=== PATIENT | male | born 1975 | race Caucasian/White ===

== ENCOUNTER 2020-06-01 00:20 | Emergency (ER) | payer OTHER ==
[~2020-06-01] VITALS: Ht 198.1 cm; Wt 117.9 kg
--- NOTE | 2020-06-01 00:51 | Emergency Department Note ---
History of Present Illnes History of Present Illness Chief Complaint: Chest Pain History of Present Illness This is a 45 year old male with intermittant chest palpitations since 0. Denies SOB, reports that episodes are self-limited . Onset (how long ago): day(s) (5) Location: substernal Quality: throbbing Radiation: Reports non-radiation Severity: mild Onset quality: sudden Timing of current episode: constant Progression: resolved Context: Denies recent illness, Denies recent surgery, Denies recent immobilization, Denies recent travel, Denies trauma/injury, Denies new medications, Denies hx of DVT/PE, Denies non-compliance w/ medications, Denies other Relieving factors: none Exacerbating factors: none Associated symptoms: Reports denies other symptoms Treatments prior to arrival: none Past Medical/Family History Physician Review I have reviewed the patient's past medical and family history. Any updates have been documented here. Past Medical History Recent Fever: No Clinical Suspicion of Infectio: No New/Unexplained Change in Ment: No Past Medical History: Hypertension Social History Smoking Cessation: Never Smoker Alcohol Use: Occasional Any Illegal Drug Use: No Review of Systems Review of Systems Constitutional: Reports no symptoms EENTM: Reports no symptoms Cardiovascular: Reports palpitations Respiratory: Reports no symptoms Gastrointestinal: Reports no symptoms Genitourinary: Reports no symptoms Musculoskeletal: Reports no symptoms Integumentary: Reports no symptoms Neurological: Reports no symptoms Psychological: Reports no symptoms Endocrine: Reports no symptoms Hematological/Lymphatic: Reports no symptoms Physical Exam Related Data Allergies: Coded Allergies: Penicillins (Verified Allergy, Intermediate, 06/01/20) chocolate flavor (Verified Allergy, Intermediate, 06/01/20) Vital signs reviewed: Yes Physical Exam CONSTITUTIONAL Constitutional: Present well-developed, Present well-nourished HENT HENT: Present normocephalic, Present atraumatic, Present oropharynx clear/moist, Present nose normal HENT L/R: Present left ext ear normal, Present right ext ear normal EYES Eyes: Reports PERRL, Reports conjunctivae normal NECK Neck: Present ROM normal PULMONARY Pulmonary: Present effort normal, Present breath sounds normal CARDIOVASCULAR Cardiovascular: Present regular rhythm, Present heart sounds normal, Present capillary refill normal, Present normal rate GASTROINTESTINAL Abdominal: Present soft, Present nontender, Present bowel sounds normal GENITOURINARY Genitourinary: Present exam deferred SKIN Skin: Present warm, Present dry MUSCULOSKELETAL Musculoskeletal: Present ROM normal NEUROLOGICAL Neurological: Present alert, Present oriented x 3, Present no gross motor or sensory deficits PSYCHOLOGICAL Psychological: Present mood/affect normal, Present judgement normal Results Laboratory Lab results reviewed: Yes Laboratory comments Laboratory Tests Test 06/01/20 00:46 White Blood Count 9.53 x10e3/uL (4.8-10.8) Red Blood Count 4.84 x10e6/uL (4.3-5.7) Hemoglobin 14.5 g/dL (14.0-18.0) Hematocrit 42.7 % (38.2-49.6) Mean Corpuscular Volume 88.2 fL (81-99) Mean Corpuscular Hemoglobin 30.0 pg (28-32) Mean Corpuscular Hemoglobin Concent 34.0 g/dL (31-35) Red Cell Distribution Width 13.0 % (11.7-14.4) Platelet Count 266 x10e3/uL (140-360) Neutrophils (%) (Auto) 53.7 % (38.7-80.0) Lymphocytes (%) (Auto) 37.9 % (18.0-39.1) Monocytes (%) (Auto) 5.9 % (4.4-11.3) Eosinophils (%) (Auto) 1.7 % (0.0-6.0) Basophils (%) (Auto) 0.6 % (0.0-1.0) Neutrophils # (Auto) 5.1 (2.1-6.9) Lymphocytes # (Auto) 3.6 (1.0-3.2) Monocytes # (Auto) 0.6 (0.2-0.8) Eosinophils # (Auto) 0.2 (0.0-0.4) Basophils # (Auto) 0.1 (0.0-0.1) Absolute Immature Granulocyte (auto 0.02 x10e3/uL (0-0.1) D-Dimer Quantitative (PE/DVT) 0.27 ug/mLFEU (0.00-0.45) Sodium Level 146 mmol/L (136-145) Potassium Level 3.0 mmol/L (3.5-5.1) Chloride Level 108 mmol/L (98-107) Carbon Dioxide Level 27 mmol/L (22-29) Anion Gap 14.0 mmol/L (8-16) Blood Urea Nitrogen 13 mg/dL (7-26) Creatinine 0.99 mg/dL (0.72-1.25) Estimat Glomerular Filtration Rate > 60 ML/MIN (60-) BUN/Creatinine Ratio 13 (6-25) Glucose Level 98 mg/dL (74-118) Calcium Level 9.5 mg/dL (8.4-10.2) Total Bilirubin 0.5 mg/dL (0.2-1.2) Aspartate Amino Transf (AST/SGOT) 21 IU/L (5-34) Alanine Aminotransferase (ALT/SGPT) 42 IU/L (0-55) Alkaline Phosphatase 66 IU/L (40-150) Creatine Kinase 156 IU/L (30-200) Creatine Kinase MB 1.00 ng/mL (0-5.0) Troponin I < 0.001 ng/mL (0-0.300) B-Type Natriuretic Peptide < 10.0 pg/mL (0-100) Total Protein 7.2 g/dL (6.5-8.1) Albumin 4.0 g/dL (3.5-5.0) Globulin 3.2 g/dL (2.3-3.5) Albumin/Globulin Ratio 1.3 (0.8-2.0) Imaging Imaging results reviewed: Yes Impressions [place] [id number] Patient Name: RUFINO BULLOCK MR #: [id number] : 1975 Age/Sex: 45/M Req #: [id number] Adm Physician: Ordered by: ATUL VANN DO Report #: [id number] Location: ER Room/Bed: Procedure: [id number] DX/CHEST 2 VIEWS Exam Date: Exam Time: REPORT STATUS: Signed EXAMINATION: CHEST 2 VIEWS INDICATION: Heart palpitations. ^ORDER PLACED BY MD ^Y COMPARISON: None FINDINGS: TUBES and LINES: None. LUNGS: Normal lung volumes. Lungs are clear. No consolidations. PLEURA: No pleural effusion or pneumothorax. HEART AND MEDIASTINUM: The cardiomediastinal silhouette is unremarkable. BONES AND SOFT TISSUES: No acute osseous lesion. Soft tissues are unremarkable. UPPER ABDOMEN: No free air under the diaphragm. IMPRESSION: No acute thoracic radiographic abnormality. Signed by: Swomya Fishman MD on 06/01/2020 2:40 AM Dictated By: SOWMYA FISHMAN MD 9 Transcribed By: KIM on 06/01/20239 COPY TO: ATUL VANN DO~ Procedures 12 Lead ECG Interpretation ECG Interpretation : ECG: ECG 1 Digital Service Engineer: Interpreted by ED physician Date: Jun 01, 2020 Time: 00:51 Prior ECG tracings: reviewed Rhythm: sinus rhythm Rate: normal BPM: 70 QRS axis: normal ST segments normal: Yes T waves normal: Yes Clinical Impression: normal ECG Assessment & Plan Medical Decision Making MDM 45 yom presents with chest palpitations. CMP, CBC, EKG, and cardiac enzymes ordered for consideration of ACS, PE, costocondritis, Chest wall pain, and pneumothorax considered. labs, imaging and EKG reviewed . Assessment & Plan Final Impression: (1) Palpitations (2) Hypokalemia Depart Disposition: HOME, SELF-CARE ATUL VANN DO Jun 01, 2020 00:51
[2020-06-01] MEDS ORDERED: ASPIRIN 81 MG CHEW TAB PO ONE (01:00)
[2020-06-01 01:08] LABS: BASOPHILS # (AUTO) 0.1 (0.0-0.1); BASOPHILS % 0.6 % (0.0-1.0); EOSINOPHILS # (AUTO) 0.2 (0.0-0.4); EOSINOPHILS % 1.7 % (0.0-6.0); HEMATOCRIT 42.7 % (38.2-49.6); HEMOGLOBIN 14.5 g/dL (14.0-18.0); LYMPHOCYTES # (AUTO) 3.6 (1.0-3.2); LYMPHOCYTES % 37.9 % (18.0-39.1); MEAN CORPUSCULAR VOLUME 88.2 fL (81-99); MONOCYTES # (AUTO) 0.6 (0.2-0.8); MONOCYTES % 5.9 % (4.4-11.3); NEUTROPHILS # (AUTO) 5.1 (2.1-6.9); NEUTROPHILS % 53.7 % (38.7-80.0); PLATELET COUNT 266 x10e3/uL (140-360); RED BLOOD COUNT 4.84 x10e6/uL (4.3-5.7)
[2020-06-01 01:29] LABS: ALANINE AMINOTRANSFERASE 42 IU/L (0-55); ALBUMIN/GLOBULIN RATIO 1.3 (0.8-2.0); ALKALINE PHOSPHATASE 66 IU/L (40-150); BLOOD UREA NITROGEN 13 mg/dL (7-26); BUN/CREATININE RATIO 13 (6-25); CALCIUM 9.5 mg/dL (8.4-10.2); CARBON DIOXIDE 27 mmol/L (22-29); CHLORIDE 108 mmol/L (98-107); CREATINE KINASE 156 IU/L (30-200); CREATININE, SERUM 0.99 mg/dL (0.72-1.25); EST GLOMERULAR FILTRATION RATE > 60 ML/MIN (60-); GLUCOSE 98 mg/dL (74-118); SODIUM 146 mmol/L (136-145)
--- OUTSIDE RECORDS SUMMARY | 2020-06-01 01:46 | XMS REPORT | Summary of Care ---
Author Author RUFINO Gilbert LVN Organization Unknown Address [facility] Phone Unavailable Care Team Providers Care Member Service Representative Name Role Phone CLARENCE POLO Unavailable Unavailable STEFAN GILES [place], ALEXA DENG Unavailable Unavailable SUMAYA TUCKER MD Unavailable Unavailable STEFAN Rodriguez, ALEXA Unavailable Unavailable AMANDEEP GILES [place], LEN Paul Unavailable Unavailable Unavailable Unavailable Functional Status Name Dates Details Functional status health issues are not documented Status: Name Dates Details Cognitive status health issues are not d ocumented Status: Problems Name Dates Details Abnormal EKG (794.31, R94.31) Status: Active Acute rhinosinusitis (461.9, J01.90) Status: Active Essential (primary) hypertension (401.9, I10) Status: Active Mixed hyperlipidemia (272.2, E78.2) Status: Active Medications Name Dates Details Aspirin 81 MG TABS TAKE 1 TABLET DAILY. Active Multi Vitamin/Minerals Oral Tablet TAKE 1 TABLET DAILY. * Refills: 0 Active Vitamin C CAPS TAKE 1 CAPSULE DAILY. * Refills: 0 Active B-12 500 MCG Oral Tablet TAKE 1 TABLET DAILY. * Refills: 0 Active amLODIPine-Olmesartan 10-20 MG Oral Tablet TAKE 1 TABLET DAILY * Quantity: 90 Refills: 1 WILBUR Meri.Sarah.CLARENCE * Start : 14-Oct-2018 Active Ipratropium [place] 0.03 % Nasal Solution USE 2 SPRAYS IN EACH NOSTRIL 3 TIMES DAILY NEEDED FOR NASAL CONGESTION * Quantity: 1 Refills: 3 WILBUR P.A.CLARENCE * Start : 11-Jan-2020 Active 30 ML Bottle Benzonatate 100 MG Oral Capsule 1-2 PO Q8H PRN cough * Quantity: 40 Refills: 1 WILBUR P.Sarah.CLARENCE * Start : 11-Jan-2020 Active Allergies and Adverse Reactions Name Dates Details Penicillins (Allergy) Status: Active Chocolate (Allergy) Status: Active Past Medical History Name Dates Details History of broken nose (V15.51, Z87.81) Status: Resolved History of conjunctivitis (V12.49, Z86.6 9) Status: Resolved History of Essential hypertension, benig n (401.1, I10) Status: Resolved Procedures Procedure Dates Details [QLH] CBC (INCLUDES DIFF/PLT) Date: 11-Jan-2020 [QLH] CMP W/EGFR Date: 11-Jan-2020 [QH] LIPID PANEL WITH REFLEX TO DIRECT LDL Date: 11-Jan-2020 [QLH] TSH, 3RD GENERATION W/REFLEX TO FT4 Date: 11-Jan-2020 History of Claviculectomy Completed History of Shoulder Surgery Completed Immunization Name Dates Details Immunizations not documented Family History Name Dates Details Family history of hypertension (V17.49, Z82.49) Status: Active Family history of hyperlipidemia (V18.19 , Z83.438) Status: Active Name Dates Details Family history of myocardial infarction (V17.3, Z82.49) Status: Active FH: CABG (coronary artery bypass surgery ) (V17.3, Z82.49) Status: Active Social History Name Dates Details - Status: Name Dates Details Never smoked tobacco (finding) Vital Signs Date Test Result Details [id number] Systolic blood pressure 148 mm[Hg] Status: Diastolic blood pressure 87 mm[Hg] Status: Heart Rate 81 /min Status: [id number]:15 Systolic blood pressure 157 mm[Hg] Status: Comments : Location: LUE; Position: Sitting Diastolic blood pressure 85 mm[Hg] Status: Comment s: Location: LUE; Position: Sitting Heart Rate 80 /min Status: Body height 78 in Status: Weight 285 lb Status: Body mass index (BMI) [Ratio] 32.94 kg/m2 Status: Body surface area Derived from formula 2.62 m2 S tatus: Body temperature 98.3 f Status: Comments: Me thod: Temporal Respiratory rate 16 /min Status: Results Date Description Value Details Results not documented Plan of Care Name Dates Details Planned Observations Planned Goals not documented Planned Encounters Appointment; LEN BERNSTEIN M.D. On: 11-Jul-2020 9:30 Interventions Provided Medication Changes* amLODIPine-Olmesartan 10-20 MG Oral Tablet - Renew * Benzonatate 100 MG Oral Capsule - Start * Ipratropium [place] 0.03 % Nasal Solution - Start Labs/Procedures/Imaging* [QH] LIPID PANEL WITH REFLEX TO DIRECT LDL; To Be Done: 11 Jan 2020 * [QLH] CBC (INCLUDES DIFF/PLT); To Be Done: 11 Jan 2020 * [QLH] CMP W/EGFR; To Be Done: 11 Jan 2020 * [QLH] TSH, 3RD GENERATION W/REFLEX TO FT4; To Be Done: 11 Jan 2020 Medications/Immunizations Administered* MethylPREDNISolone Acetate 80 MG/ML Injection Suspension Instructions Name Dates Details Instructions not documented Encounters Appointment; LEN BERNSTEIN M.D. Encounter Diagnosis: Problem not documented On: 30-Jan-2018 13:00 Appointment; LEN BERNSTEIN M.D. Encounter Diagnosis: Problem not documented On: 14-Oct-2018 9:15 Appointment; REGINA VANN APRN Encounter Diagnosis: Problem not documented On: 29-Apr-2019 19:00 Appointment; REGINA VANN APRN Encounter Diagnosis: Problem not documented On: 07-Oct-2019 12:15 Appointment; CLARENCE BOWLES P.A. Encounter Diagnosis: Problem not documented On: 11-Jan-2020 10:30
--- OUTSIDE RECORDS SUMMARY | 2020-06-01 01:46 | XMS REPORT | Summary of Care ---
Author Author RUFINO POLO Organization Unknown Address Unknown Phone Unavailable Care Team Providers Care Event Promoter Name Role Phone CLARENCE POLO Unavailable Unavailable STEFAN GILES [place], ALEXA DENG Unavailable Unavailable SUMAYA TUCKER MD Unavailable Unavailable ALEXA AVILES M.D. Unavailable Unavailable AMANDEEP GILES [place], LEN Paul Unavailable Unavailable Unavailable Unavailable Functional [...] DAILY * Quantity: 90 Refills: 1 WILBUR Lisbeth.CLARENCE * Start : 14-Oct-2018 Active Ipratropium [place] 0.03 % Nasal Solution USE 2 SPRAYS IN EACH NOSTRIL 3 TIMES DAILY NEEDED FOR NASAL CONGESTION * Quantity: 1 Refills: 3 WILBUR P.Sarah.CLARENCE * Start : 11-Jan-2020 Active 30 ML [...] 9) Status: Resolved History of Essential hypertension, bentomi n (401.1, I10) Status: Resolved Procedures Procedure [...] (finding) Vital Signs Date Test Result Details [id number] Systolic blood pressure 148 mm[Hg] Status: Diastolic blood pressure 87 mm[Hg] Status: Heart Rate 81 /min Status: [id number]-[id number]:15 Systolic blood pressure 157 mm[Hg] Status: Comments [...] MG Oral Capsule - Start * Ipratropium [place] 0.03 % Nasal Solution - Start Labs/Procedures/Imaging* [QH] LIPID PANEL WITH REFLEX TO DIRECT LDL; To Be Done: 11 Jan 2020 * [QLH] CBC (INCLUDES DIFF/PLT); To Be Done: 11 Jan 2020 * [QLH] CMP W/EGFR; To Be Done: 11 Jan 2020 * [QL] TSH, 3RD GENERATION W/REFLEX TO FT4; To Be Done: 11 Jan 2020 Medications/Immunizations Administered* MethylPREDNISolone Acetate 80 MG/ML Injection Suspension Plan* Acute rhinosinusitis - depomedrol 80 mg IM in office; benzonatate and ipratropium nasal spray as above; if not improving in 3-4 days, will prescribed doxycycline 100 mg BID x 10 days for bacterial sinusitis * HTN - monitor BP; f/u if >=140/90; continue amlodipine/olmesartan * HLD - recheck lipids * f/u 6 months Instructions Name Dates Details Instructions not documented [...]
--- OUTSIDE RECORDS SUMMARY | 2020-06-01 01:46 | XMS REPORT | Summary of Care ---
Author RUFINO Harrell M.A. Organization Unknown Address [facility] Phone Unavailable Care Team Providers Care Aws Software Development Engineer Name Role Phone EDWAR THERMOSPRAY OPERATORREGINA Unavailable Unavailable CLARENCE POLO Unavailable Unavailable STEFAN GILES [place], ALEXA DENG Unavailable Unavailable GARRETT GILES, SUMAYA [place] Unavailable Unavailable ALEXA AVILES M.D. Unavailable Unavailable AMANDEEP GILES [place], LEN Paul Unavailable Unavailable Unavailable Unavailable Functional Status Name Dates Details Functional status health issues are not documented Status: Name Dates Details Cognitive status health issues are not d ocumented Status: Problems Name Dates Details Abnormal EKG (794.31, R94.31) Status: Active Bronchospasm (519.11, J98.01) Status: Active Essential (primary) hypertension (401.9, I10) Status: Active Acute streptococcal pharyngitis (034.0, J02.0) Status: Active Acute bronchitis due to other specified organisms (466.0, J20.8) Status: Active Acute rhinosinusitis (461.9, J01.90) Status: Active Medications Name Dates Details Aspirin 81 MG TABS TAKE 1 TABLET DAILY. Active Multi Vitamin/Minerals Oral Tablet TAKE 1 TABLET DAILY. * Refills: 0 Active Vitamin C CAPS TAKE 1 CAPSULE DAILY. * Refills: 0 Active B-12 500 MCG Oral Tablet TAKE 1 TABLET DAILY. * Refills: 0 Active amLODIPine-Olmesartan 10-20 MG Oral Tablet TAKE 1 TABLET DAILY * Quantity: 30 Refills: 5 REGINA VANN APRN * Start : 14-Oct-2018 Active MethylPREDNISolone Acetate 80 MG/ML Injection Suspension Inject 80 mg IM in office today * Quantity: 0 Refills: 0 CLARENCE POLO * Start : 11-Jan-2020 Admin Requested Ipratropium [place] 0.03 % Nasal Solution USE 2 SPRAYS IN EACH NOSTRIL 3 TIMES DAILY NEEDED FOR NASAL CONGESTION * Quantity: 1 Refills: 3 CLARENCE POLO * Start : 11-Jan-2020 Active 30 ML Bottle Benzonatate 100 MG Oral Capsule 1-2 PO Q8H PRN cough * Quantity: 40 Refills: 1 WILBUR CLARENCE Cotter * Start : 11-Jan-2020 Active Allergies and Adverse Reactions Name Dates Details Penicillins (Allergy) Status: Active Chocolate (Allergy) Status: Active Past Medical History Name Dates Details History of broken nose (V15.51, Z87.81) Status: Resolved History of conjunctivitis (V12.49, Z86.6 9) Status: Resolved History of Essential hypertension, benig n (401.1, I10) Status: Resolved Procedures Procedure Dates Details History of Claviculectomy Completed History of Shoulder [...] (finding) Vital Signs Date Test Result Details [id number] Systolic blood pressure 148 mm[Hg] Status: Diastolic blood pressure 87 mm[Hg] Status: Heart Rate 81 /min Status: [id number] Systolic blood pressure 157 mm[Hg] Status: Comments [...] Planned Observations Planned Goals not documented Planned Medications MethylPREDNISolone Acetate 80 MG/ML Inje ction Suspension Ordered: 11-Jan-2020 Held Interventions Provided Medication Changes* Benzonatate 100 MG Oral Capsule - Start * Ipratropium [place] 0.03 % Nasal Solution - Start Plan* Elevated BP - monitor BP; f/u if >=140/90 * If not improving in 3-4 days, will prescribed doxycycline 100 mg BID x 10 days for bacterial sinusitis Instructions Name Dates Details Instructions not documented Encounters Appointment; LEN BERNSTEIN M.D. Encounter Diagnosis: Problem not documented On: 30-Jan-2018 13:00 Appointment; LEN BERNSTENI M.D. Encounter Diagnosis: Problem not documented On: 14-Oct-2018 9:15 Appointment; REGINA VANN APRN Encounter Diagnosis: Problem not documented On: 29-Apr-2019 19:00 Appointment; REGINA VANN APRN Encounter Diagnosis: Problem not documented On: 07-Oct-2019 12:15 Appointment; CLARENCE BOWLES P.A. Encounter Diagnosis: Problem not documented On: 11-Jan-2020 10:30
--- OUTSIDE RECORDS SUMMARY | 2020-06-01 01:46 | XMS REPORT | Continuity of Care Document ---
Author Author [facility] Organization [facility] Address [address] [place] [address] Phone Unavailable Care Team Providers Care House Detective Name Role Phone WILBURCLARENCE P.A. Attphys Unavailable REGINA VANN APRN Attphys Unavailable LEN BERNSTEIN M.D. Attphys Unavailable WILMER CABRALES D.O. Attphys Unavailable ABIGAIL BELTRAN M.D. Attphys Unavailable OBIE HOLAMN M.D. Attphys Unavailable Problems Condition Name Condition Details Condition Category Status Onset Date Resolution Date Last Treatment Date Treating Clinician Comments Source History of broken nose History of broken nose Problem Resolved [facility] History of conjunctivitis History of conjunctivitis Problem Resolved [facility] History of Essential hypertension, benign History of E ssential hypertension, benign Problem Resolved [facility] Abnormal EKG Abnormal EKG Problem Active [facility] Essential (primary) hypertension Essential (primary) hypertensio n Problem Active [facility] Acute rhinosinusitis Acute rhinosinusitis Problem Active [facility] Mixed hyperlipidemia Mixed hyperlipidemia Problem Active [facility] Hypokalemia Hypokalemia Problem Active [facility] Allergies, Adverse Reactions, Alerts Allergy Name Allergy Type Status Severity Reaction(s) Onset Date Inacti ve Date Treating Clinician Comments Source Penicillins Allergy to drug (finding) Active [facility] Chocolate Allergy to substance (finding) Active [facility] Family History Family Member Diagnosis Comments Start Date Stop Date Source Mother Family history of hypertension [facility] Mother Family history of hyperlipidemia [facility] Grandfather Family history of myocardial infarction [facility] Grandfather FH: CABG (coronary artery bypass surgery) [facility] Social History Smoking Status Start Date Stop Date Source [facility] smoked tobacco (finding[facility] Medications Ordered Medication Name Filled Medication Name Start Date Stop Da te Current Medication? Ordering Clinician Indication Dosage Frequency Signature (SIG) Comments Components Source Ipratropium [place] 0.03 % Nasal Solution Ipratropium [place] 0.03 % Nasal Solution 2020-01-11 00:00:00 Yes CLARENCE Cotter USE 2 SPRAYS IN EACH NOSTRIL 3 TIMES DAILY NEEDED FOR NASAL CONGESTION [facility] Benzonatate 100 MG Oral Capsule Benzonatate 100 MG Oral Caps ule 2020-01-11 00:00:00 Yes CLARENCE Cotter 1-2 PO Q8H PRN c ough [facility] amLODIPine-Olmesartan 10-20 MG Oral Tablet amLODIPine- Olmesartan 10-20 MG Oral Tablet 2018-10-14 00:00:00 Yes CLARENCE Jerez.A. 1 QD TAKE 1 TABLET DAILY [facility] Aspirin 81 MG TABS Aspirin 81 MG TABS Yes 1 QD TA KE 1 TABLET DAILY. [facility] Multi Vitamin/Minerals Oral Tablet Multi Vitamin/Minerals Oral Tablet Yes 1 QD TAKE 1 TABLET DAILY. [facility] B-12 500 MCG Oral Tablet B-12 500 MCG Oral Tablet Yes 1 QD TAKE 1 TABLET DAILY. [facility] Vitamin C CAPS Vitamin C CAPS Yes 1 QD TAKE 1 CAP ERMIAS DAILY. [facility] Vital Signs Vital Name Observation Time Observation Value Comments Source Systolic blood pressure 2020-01-11 10:16:00 148 mm[Hg] [facility] Diastolic blood pressure 2020-01-11 10:16:00 87 mm[Hg] [facility] Heart Rate 2020-01-11 10:16:00 81 /min [facility] Systolic blood pressure 2020-01-11 10:15:00 157 mm[Hg] Loca tion: LUE; Position: Sitting [facility] Diastolic blood pressure 2020-01-11 10:15:00 85 mm[Hg] Loc ation: LUE; Position: Sitting [facility] Heart Rate 2020-01-11 10:15:00 80 /min [facility] Body height 2020-01-11 10:15:00 78 [in_us] [facility] Weight 2020-01-11 10:15:00 285 [lb_av] [facility] Body mass index (BMI) [Ratio] 2020-01-11 10:15:00 32.94 kg/m2 [facility] Body temperature 2020-01-11 10:15:00 98.3 [degF] Method: Temporal [facility] Respiratory rate 2020-01-11 10:15:00 16 /min [facility] BP Systolic 2019-10-07 12:17:00 136 mm[Hg] Location: LUE; Positi on: Sitting [facility] BP Diastolic 2019-10-07 12:17:00 76 mm[Hg] Location: LUE; Positi on: Sitting [facility] Height 2019-10-07 12:17:00 78 [in_us] [facility] Temperature 2019-10-07 12:17:00 99 [degF] Method: Temporal [facility] Respiration Rate 2019-10-07 12:17:00 18 /min [facility] Heart Rate 2019-10-07 12:17:00 71 /min [facility] BP Systolic 2019-04-29 18:47:00 152 mm[Hg] Location: EDWARDE; Positi on: Sitting [facility] BP Diastolic 2019-04-29 18:47:00 83 mm[Hg] Location: LUE; Positi on: Sitting [facility] Height 2019-04-29 18:47:00 78 [in_us] [facility] Weight 2019-04-29 18:47:00 278.375 [lb_av] [facility] Body Mass Index Calculated 2019-04-29 18:47:00 32.17 kg/m2 [facility] Temperature 2019-04-29 18:47:00 97.8 [degF] Method: Temporal [facility] Heart Rate 2019-04-29 18:47:00 69 /min [facility] Respiration Rate 2019-04-29 18:47:00 16 /min [facility] BP Systolic 2018-10-14 09:27:00 150 mm[Hg] Location: LUE; Positi on: Sitting [facility] BP Diastolic 2018-10-14 09:27:00 95 mm[Hg] Location: LUE; Positi on: Sitting [facility] Height 2018-10-14 09:27:00 78 [in_us] [facility] Weight 2018-10-14 09:27:00 275.25 [lb_av] [facility] Body Mass Index Calculated 2018-10-14 09:27:00 31.81 kg/m2 [facility] Temperature 2018-10-14 09:27:00 98 [degF] Method: Temporal [facility] Heart Rate 2018-10-14 09:27:00 69 /min [facility] Respiration Rate 2018-10-14 09:27:00 16 /min [facility] BP Systolic 2018-01-30 13:16:00 136 mm[Hg] Location: LLE; Positi on: Sitting [facility] BP Diastolic 2018-01-30 13:16:00 76 mm[Hg] Location: LLE; Positi on: Sitting [facility] Height 2018-01-30 13:16:00 78 [in_us] [facility] Weight 2018-01-30 13:16:00 278.25 [lb_av] [facility] Body Mass Index Calculated 2018-01-30 13:16:00 32.16 kg/m2 [facility] Temperature 2018-01-30 13:16:00 98 [degF] Method: Tympanic [facility] Heart Rate 2018-01-30 13:16:00 72 /min Location: L Radial; Q uality: Normal [facility] Respiration Rate 2018-01-30 13:16:00 16 /min Quality[facility] BP Systolic 2017-12-17 13:00:00 127 mm[Hg] Location: LLE; Positi on: Sitting [facility] BP Diastolic 2017-12-17 13:00:00 88 mm[Hg] Location: LLE; Positi on: Sitting [facility] Height 2017-12-17 13:00:00 80 [in_us] [facility] Weight 2017-12-17 13:00:00 279 [lb_av] [facility] Body Mass Index Calculated 2017-12-17 13:00:00 30.65 kg/m2 [facility] Temperature 2017-12-17 13:00:00 98.8 [degF] Method: Temporal [facility] Respiration Rate 2017-12-17 13:00:00 16 /min [facility] Heart Rate 2017-12-17 13:00:00 89 /min [facility] Procedures Procedure Date / Time Performed Performing Clinician Sourc e [QL] POTASSIUM 2020-01-12 00:00:00 [facility] [[facility]] CBC (INCLUDES DIFF/PLT) 2020-01-11 00:00:00 [facility] [[facility]] CMP W/EGFR 2020-01-11 00:00:00 [facility] [Q] LIPID PANEL WITH REFLEX TO DIRECT LDL 2020-01-11 00:00:00 [facility] [[facility]] TSH, 3RD GENERATION W/REFLEX TO FT4 2020-01-11 00:00:00 [facility] [[facility]] CBC (INCLUDES DIFF/PLT) 2019-10-07 00:00:00 [facility] [[facility]] CMP W/EGFR 2019-10-07 00:00:00 [facility] [Q] LIPID PANEL WITH REFLEX TO DIRECT LDL 2019-10-07 00:00:00 [facility] [QL] TSH, 3RD GENERATION W/REFLEX TO FT4 2019-10-07 00:00:00 [facility] [Q] LIPID PANEL WITH REFLEX TO DIRECT LDL 2018-10-14 00:00:00 [facility] [QLH] CMP W/EGFR 2018-10-14 00:00:00 [facility] [[facility]] TSH, 3RD GENERATION W/REFLEX TO FT4 2018-10-14 00:00:00 [facility] [[facility]] CBC (INCLUDES DIFF/PLT) 2018-10-14 00:00:00 [facility] [[facility]] URINALYSIS, COMPLETE 2018-10-14 00:00:00 [facility] [] LIPID PANEL WITH REFLEX TO DIRECT LDL 2018-01-30 00:00:00 [facility] [QL] CMP W/EGFR 2018-01-30 00:00:00 [facility] [[facility]] TSH, 3RD GENERATION W/REFLEX TO FT4 2018-01-30 00:00:00 [facility] [[facility]] URINALYSIS, COMPLETE 2018-01-30 00:00:00 [facility] History of Claviculectomy [facility] History of Shoulder Surgery [facility] Plan of Care Planned Activity Planned Date Details Comments Source Diagnostic Test Pending 2020-02-02 00:00:00 [QLH] POTASSIUM [code = [QLH] POTASSIUM] [facility] Future Appointment 2020-07-11 09:30:00 Michael HARRINGTON [facility] Encounters Start Date/Time End Date/Time Encounter Type Admission Type [facility] Care Department Encounter ID Source 2020-01-11 10:30:00 2020-01-11 10:30:00 Appointment; TITO BOWLES P.A. SPOONER, JOSEPH, P.A. [facility] [id number] [facility] 2019-10-07 12:15:00 2019-10-07 12:15:00 Appointment; REGINA VANN AP RN TRAN, THUY, APRN [facility] [id number] [facility] 2019-04-29 19:00:00 2019-04-29 19:00:00 Appointment; REGINA VANN AP RN TRAN, THUY, APRN [facility] [id number] [facility] 2018-10-14 09:15:00 2018-10-14 09:15:00 Appointment; LEN BERNSTEIN M .D. BAI, KRISTY, M.D. [facility] [address] [id number] [facility] 2018-01-30 13:00:00 2018-01-30 13:00:00 Appointment; LEN BERNSTEIN M .D. BAI, KRISTY, M.D. [facility] [address] [id number] [facility] 2017-12-17 13:30:00 2017-12-17 13:30:00 Appointment; WILMER CABRALES D.O. YEH, SHAO-CHUN, D.O. [facility] [id number] [facility] 2017-01-14 10:00:00 2017-01-14 10:00:00 Appointment; LEN BERNSTEIN M .D. BAI, KRISTY, M.D. [facility] [id number] [facility] 2016-09-25 09:00:00 2016-09-25 09:00:00 Appointment; FANTA BELTRAN M.D. PERKISON, WILLIAM, M.D. [facility]TP [id number] [facility] 2016-06-12 09:30:00 2016-06-12 09:30:00 Appointment; LEN BERNSTEIN M .D. BAI, KRISTY, M.D. [facility] UTP [id number] [facility] 2016-01-18 13:20:00 2016-01-18 13:20:00 Appointment; TORI HOLMAN M.D. DHOBLE, ABHIJEET, M.D. [facility] UTP [id number] [facility] 2016-01-05 08:40:00 2016-01-05 08:40:00 Appointment; TORI HOLMAN M.D. DHOBLE, ABHIJEET, M.D. [facility] UTP [id number] [facility] Results Test Description Test Time Test Comments Results Result Comments Source [[facility]] TSH, 3RD GENERATION W/REFLEX TO FT4 2020-01-11 11:03:0 1 Test Item TSH (test code = 04272-1) 1.930 {uIU/ml} 0.360-3.740 [facility][] LIPID PANEL WITH REFLEX TO DIRECT LDL 2020-01-11 11:03:01* Test Item Value Reference Range Interpretation Comments Chol; Above High Threshold (test code = 2093-3) 249 mg/dl <=199 Trig; Above High Threshold (test code = 2571-8) 286 mg/dl <=149 HDL Cholesterol; Below Low Threshold (test code = 2085-9) 41 mg/dl >=61 CHD Risk (test code = 97034-9) 6.07 4.00-7.30 LDL; Above High Threshold (test code = 81364-9) 151 mg/dl <=99 VLDL (test code = VLDL) 57 [facility]] CBC (INCLUDES DIFF/PLT)2020-01-11 11:03:01* Test Item Value Reference Range Interpretation Comments WBC (test code = 6690-2) 8.7 {K/CMM} 3.7-10.4 RBC (test code = 789-8) 5.23 {M/CMM} 4.70-6.10 Hgb (test code = 718-7) 16.2 g/dl 14.0-18.0 Hct (test code = 82095-2) 46.8 % 42.0-54.0 MCV (test code = 787-2) 89.5 fL 80.0-94.0 MCH (test code = 785-6) 30.9 pg 27.0-31.0 MCHC (test code = 786-4) 34.5 g/dl 32.0-36.0 RDW (test code = 788-0) 13.7 % 11.5-14.5 Platelet (test code = 82248-8) 242 {K/CMM} 133-450 Mean Platelet Volume (test code = 31143-9) 9.2 fL 7.4-10.4 [facility]] [id number] 11:03:01* Test Item Value Reference Range Interpretation Comments Segmented Neutrophils (test code = 32501-4) 63.6 % 45.0-75.0 Monocytes (test code = 51192-4) 8.0 % 2.0-12.0 Lymphocytes (test code = 95887-6) 24.1 % 20.0-40.0 Eosinophils (test code = 78510-9) 3.4 % 0.0-4.0 Basophils (test code = 706-2) 0.9 % 0.0-1.0 Segs-Bands # (test code = 23095-5) 5.5 {K/CMM} 1.5-8.1 Lymphocytes # (test code = 79399-3) 2.1 {K/CMM} 1.0-5.5 Monocytes # (test code = 31856-5) 0.7 {K/CMM} 0.0-0.8 Eosinophils # (test code = 09306-8) 0.3 {K/CMM} 0.0-0.5 Basophils # (test code = 75846-1) 0.1 {K/CMM} 0.0-0.2 [facility]] CMP [id number] 11:03:00* Test Item Value Reference Range Interpretation Comments Sodium Level (test code = 2951-2) 142 {mEq/l} 135-145 Potassium Level; Below Low Threshold (test code = 2823-3) 3.3 {mEq/ l} 3.5-5.1 Chloride Level (test code = 5-0) 104 {mEq/l} 95-109 Carbon Dioxide (test code = 2027-9) 31 {mEq/l} 24-32 AGAP (test code = 33050-1) 10.3 {mEq/l} 10.0-20.0 Glucose Lvl (test code = 2345-7) 85 mg/dl 70-99 Adult reference range values reflect the clinical guidelinesof the [place] [employer]. Creatinine Lvl (test code = 2160-0) 1.00 mg/dl 0.50-1.40 Blood Urea Nitrogen (test code = 3094-0) 8 mg/dl 7-22 BUN/Creatinine Ratio (test code = 3097-3) 8 6-25 Total Protein (test code = 2885-2) 7.5 g/dl 6.4-8.4 Albumin Lvl (test code = 1751-7) 4.3 g/dl 3.5-5.0 Globulin (test code = 22898-7) 3.2 g/dl 2.7-4.2 A/G Ratio (test code = 1759-0) 1.3 0.7-1.6 Calcium Level Total (test code = 57781-1) 8.7 mg/dl 8.5-10.5 ALT (test code = 1743-4) 64 u/l 0-65 AST (test code = 38323-4) 33 u/l 0-37 Alk Phos (test code = 1783-0) 86 u/l 39-136 The pediatric reference ranges for this test represent a CLSI-basedtransference of the CALIPER database of pediatric reference intervals to the[facility] analyzer (Clinical Biochemistry 46 (2013): 9754-7589). [facility] has not internally validated these referenceranges and therefore they should be used only in the context of a thoroughclinical assessment. Bili Total (test code = 1975-2) 0.7 mg/dl 0.2-1.3 eGFR (test code = 63907-1) 91 {ML/MIN/1.7} The eGFR is calculated using the CKD-EPI formula. In most young, healthyindividuals the eGFR will be >90 mL/min/1.73m2. The eGFR declines with age. AneGFR of 60-89 may be normal in some populations, particularly the elderly, forwhom the CKD-EPI formula has not been extensively validated. Use of the eGFR isnot recommended in the following populations:Individuals with unstable creatinine concentrations, including patients and those with serious co-morbid conditions.Patients with extremes in muscle mass or diet.The data above are obtained from the National Kidney Disease Education Program(NKDEP) which additionally recommends that when the eGFR is used in patientswith extremes of body mass index for purposes of drug dosing, the eGFR shouldbe multiplied by the estimated BMI. [facility][O] Streptococcus Test Rapid (In Office)2019-10-07 12:15:00* Test Item Value Reference Range Interpretation Comments Group A Strep Screen; Abnormal (test code = 55313-9) positive A [facility][O] Flu Test (in Office )2019-10-07 12:15:00* Test Item Value Reference Range Interpretation Comments Flu A (test code = Flu A) neg N Flu B (test code = Flu B) neg N [facility][QLH] [id number] 10:26:01* Test Item Value Reference Range Interpretation Comments Segmented Neutrophils (test code = 57469-8) 62.1 % 45.0-75.0 Monocytes (test code = 99136-3) 5.0 % 2.0-12.0 Lymphocytes (test code = 57308-3) 29.5 % 20.0-40.0 Eosinophils (test code = 02393-0) 2.7 % 0.0-4.0 Basophils (test code = 706-2) 0.7 % 0.0-1.0 Segs-Bands # (test code = 31603-5) 5.1 {K/CMM} 1.5-8.1 Lymphocytes # (test code = 33384-8) 2.4 {K/CMM} 1.0-5.5 Monocytes # (test code = 49191-9) 0.4 {K/CMM} 0.0-0.8 Eosinophils # (test code = 06938-5) 0.2 {K/CMM} 0.0-0.5 Basophils # (test code = 09801-9) 0.1 {K/CMM} 0.0-0.2 [facility]] CMP [id number] 10:26:01* Test Item Value Reference Range Interpretation Comments Sodium Level (test code = 2951-2) 142 {mEq/l} 135-145 Potassium Level (test code = 2823-3) 4.2 {mEq/l} 3.5-5.1 Chloride Level (test code = 5-0) 106 {mEq/l} 95-109 Carbon Dioxide (test code = 2027-9) 29 {mEq/l} 24-32 AGAP (test code = 48131-5) 11.2 {mEq/l} 10.0-20.0 Glucose Lvl (test code = 2345-7) 87 mg/dl 70-99 Adult reference range values reflect the clinical guidelinesof the [place] [employer]. Creatinine Lvl (test code = 2160-0) 1.00 mg/dl 0.50-1.40 Blood Urea Nitrogen (test code = 3094-0) 7 mg/dl 7-22 BUN/Creatinine Ratio (test code = 3097-3) 7 6-25 Total Protein (test code = 2885-2) 7.6 g/dl 6.4-8.4 Albumin Lvl (test code = 1751-7) 4.4 g/dl 3.5-5.0 Globulin (test code = 97564-7) 3.2 g/dl 2.7-4.2 A/G Ratio (test code = 1759-0) 1.4 0.7-1.6 Calcium Level Total (test code = 85696-8) 9.4 mg/dl 8.5-10.5 ALT (test code = 1743-4) 62 u/l 0-65 AST (test code = 11692-9) 21 u/l 0-37 Alk Phos (test code = 1783-0) 81 u/l 39-136 Bili Total (test code = 1974-) 0.5 mg/dl 0.2-1.3 eGFR (test code = 39291-5) 92 {ML/MIN/1.7} The eGFR is calculated using the CKD-EPI formula. In most young, healthyindividuals the eGFR will be >90 mL/min/1.73m2. The eGFR declines with age. AneGFR of 60-89 may be normal in some populations, particularly the elderly, forwhom the CKD-EPI formula has not been extensively validated. Use of the eGFR isnot recommended in the following populations:Individuals with unstable creatinine concentrations, including patients and those with serious co-morbid conditions.Patients with extremes in muscle mass or diet.The data above are obtained from the National Kidney Disease Education Program(NKDEP) which additionally recommends that when the eGFR is used in patientswith extremes of body mass index for purposes of drug dosing, the eGFR shouldbe multiplied by the estimated BMI. [facility]] TSH, 3RD GENERATION W/REFLEX TO FT4 2018-10-14 10:26:01* Test Item Value Reference Range Interpretation Comments TSH (test code = 59765-6) 1.110 {uIU/ml} 0.360-3.740 [facility][] LIPID PANEL WITH REFLEX TO DIRECT LDL 2018-10-14 10:26:01* Test Item Value Reference Range Interpretation Comments Chol (test code = 2093-3) 146 mg/dl <=199 Trig; Above High Threshold (test code = 2571-8) 150 mg/dl <=149 HDL Cholesterol; Below Low Threshold (test code = 2085-9) 47 mg/dl >=61 CHD Risk; Below Low Threshold (test code = 38812-9) 3.11 4. 00-7.30 LDL (test code = 85657-6) 69 mg/dl <=99 VLDL (test code = VLDL) 30 [facility]] URINALYSIS, [id number] 10:26:01* Test Item Value Reference Range Interpretation Comments UA Color (test code = 5778-6) Yellow UA Turbidity (test code = 26388-4) Clear Clear UA Spec Grav (test code = 5810-7) 1.013 <=1.030 UA pH (test code = 5803-2) 7.0 5.0-8.0 UA Protein (test code = 41862-1) Negative Negative UA Glucose (test code = 48971-3) Negative Negative UA Ketones (test code = 32555-8) Negative Negative UA Bili (test code = 5770-3) Negative Negative UA Blood (test code = 5794-3) Negative Negative UROBILINOGEN (test code = 76063-3) <=1.0 0.1-1.0 UA Nitrite (test code = 5802-4) Negative Negative UA Leuk Est (test code = 5799-2) Negative Negative UA RBC (test code = 62833-1) <1 0-2 UA WBC (test code = 61749-2) <1 0-5 UA Mucus (test code = 8247-9) Few None Seen UA Sq Epi (test code = 59477-6) None Seen Few [facility]] CBC (INCLUDES DIFF/PLT)2018-10-14 10:26:00* Test Item Value Reference Range Interpretation Comments WBC (test code = 6690-2) 8.1 {K/CMM} 3.7-10.4 RBC (test code = 789-8) 5.38 {M/CMM} 4.70-6.10 Hgb (test code = 718-7) 16.2 g/dl 14.0-18.0 Hct (test code = 15453-5) 47.7 % 42.0-54.0 MCV (test code = 787-2) 88.6 fL 80.0-94.0 MCH (test code = 785-6) 30.0 pg 27.0-31.0 MCHC (test code = 786-4) 33.9 g/dl 32.0-36.0 RDW (test code = 788-0) 13.2 % 11.5-14.5 Platelet (test code = 78023-9) 272 {K/CMM} 133-450 Mean Platelet Volume (test code = 15785-2) 9.3 fL 7.4-10.4 [facility]] TSH, 3RD GENERATION W/REFLEX TO FT4 2018-01-30 13:40:01* Test Item Value Reference Range Interpretation Comments TSH (test code = 62244-6) 1.400 {uIU/ml} 0.360-3.740 [facility][] LIPID PANEL WITH REFLEX TO DIRECT LDL 2018-01-30 13:40:01* Test Item Value Reference Range Interpretation Comments LDL; Above High Threshold (test code = 06537-5) 138 mg/dl <=99 Chol; Above High Threshold (test code = 3-3) 212 mg/dl <=199 Trig (test code = 2571-8) 135 mg/dl <=149 HDL Cholesterol; Below Low Threshold (test code = 5-9) 47 mg/dl >=61 CHD Risk (test code = 29459-9) 4.51 4.00-7.30 VLDL (test code = VLDL) 27 [facility]] URINALYSIS, [id number] 13:40:01* Test Item Value Reference Range Interpretation Comments UA Turbidity (test code = 88697-7) Clear Clear UA Spec Grav (test code = 5810-7) 1.012 <=1.030 UA pH (test code = 5803-2) 7.0 5.0-8.0 UA Protein (test code = 13016-3) Negative Negative UA Glucose (test code = 28237-4) Negative Negative UA Ketones (test code = 63084-8) Negative Negative UA Bili (test code = 5770-3) Negative Negative UA Blood (test code = 5794-3) Negative Negative UA Nitrite (test code = 5802-4) Negative Negative UA Leuk Est (test code = 5799-2) Negative Negative UA RBC (test code = 66783-4) 1 {/HPF} 0-2 UA WBC (test code = 92237-4) 1 {/HPF} 0-5 UA Sq Epi (test code = 96959-8) None Seen UA Color (test code = 5778-6) Ltyellow UROBILINOGEN (test code = 62819-4) <=1.0 0.1-1.0 [facility]] CMP [id number] 13:40:00* Test Item Value Reference Range Interpretation Comments Sodium Level (test code = 2951-2) 141 {mEq/l} 135-145 Potassium Level; Below Low Threshold (test code = 2823-3) 3.2 {mEq/ l} 3.5-5.1 Chloride Level (test code = 2075-0) 108 {mEq/l} 95-109 Carbon Dioxide (test code = 2027-9) 28 {mEq/l} 24-32 AGAP; Below Low Threshold (test code = 36414-4) 8.2 {mEq/l} 10.0-2 0.0 Glucose Lvl (test code = 2345-7) 83 mg/dl 70-99 Adult reference range values reflect the clinical guidelinesof the [place] [employer]. Creatinine Lvl (test code = 2160-0) 1.00 mg/dl 0.50-1.40 Blood Urea Nitrogen (test code = 3094-0) 8 mg/dl 7-22 BUN/Creatinine Ratio (test code = 3097-3) 8 6-25 Total Protein (test code = 2885-2) 7.8 g/dl 6.4-8.4 Albumin Lvl (test code = 1751-7) 4.3 g/dl 3.5-5.0 Globulin (test code = 35406-1) 3.5 g/dl 2.7-4.2 A/G Ratio (test code = 1759-0) 1.2 0.7-1.6 Calcium Level Total (test code = 38118-7) 9.0 mg/dl 8.5-10.5 ALT; Above High Threshold (test code = 1743-4) 74 u/l 0-65 AST (test code = 22127-8) 27 u/l 0-37 Alk Phos (test code = 1783-0) 79 u/l 39-136 Bili Total (test code = 1975-2) 0.9 mg/dl 0.2-1.3 eGFR (test code = 48879-7) 92 {ML/MIN/1.7} The eGFR is calculated using the CKD-EPI formula. In most young, healthyindividuals the eGFR will be >90 mL/min/1.73m2. The eGFR declines with age. AneGFR of 60-89 may be normal in some populations, particularly the elderly, forwhom the CKD-EPI formula has not been extensively validated. Use of the eGFR isnot recommended in the following populations:Individuals with unstable creatinine concentrations, including patients and those with serious co-morbid conditions.Patients with extremes in muscle mass or diet.The data above are obtained from the National Kidney Disease Education Program(NKDEP) which additionally recommends that when the eGFR is used in patientswith extremes of body mass index for purposes of drug dosing, the eGFR shouldbe multiplied by the estimated BMI. [facility]
--- OUTSIDE RECORDS SUMMARY | 2020-06-01 01:46 | XMS REPORT | Summary of Care ---
Author Author RUFINO Johnson M.A. Organization Unknown Address [facility] Phone Unavailable Care Team Providers Care Memory Care Program Director Name Role Phone Naomi Johnson M.A. Unavailable Unavailable CLARENCE POLO Unavailable Unavailable STEFAN GILES DC, ALEXA DENG Unavailable Unavailable GARRETT GILES, SUMAYA Gamboa Unavailable Unavailable ALEXA AVILES M.D. Unavailable Unavailable AMANDEEP GILES DC, LEN Paul Unavailable Unavailable Unavailable Unavailable Functional Status Name Dates Details Functional status health issues are not documented Status: Name Dates Details Cognitive status health issues are not d ocumented Status: Problems Name Dates Details Abnormal EKG (794.31, R94.31) Status: Active Acute rhinosinusitis (461.9, J01.90) Status: Active Essential (primary) hypertension (401.9, I10) Status: Active Mixed hyperlipidemia (272.2, E78.2) Status: Active Hypokalemia (276.8, E87.6) Status: Active Medications Name Dates Details Aspirin [...] TABLET DAILY * Quantity: 90 Refills: 1 CLARENCE POLO * Start : 14-Oct-2018 Active Ipratropium [place] 0.03 % Nasal Solution USE 2 SPRAYS IN EACH NOSTRIL 3 TIMES DAILY NEEDED FOR NASAL CONGESTION * Quantity: 1 Refills: 3 WILBUR CLARENCE Cotter * Start : 11-Jan-2020 Active 30 ML [...] Status: Resolved Procedures Procedure Dates Details [QLH] POTASSIUM Date: 12-Jan-2020 History of Claviculectomy Completed History of Shoulder [...] (finding) Vital Signs Date Test Result Details :16 Systolic blood pressure 148 mm[Hg] Status: Diastolic blood pressure 87 mm[Hg] Status: Heart Rate 81 /min Status: :15 Systolic blood pressure 157 mm[Hg] Status: Comments [...] /min Status: Results Date Description Value Details [id number] [QLH] CMP W/EGFR Sodium Level 142 {mEq/l} Range: 135-145 Potassium Level 3.3 {mEq/l} (Below low threshol d) Range: 3.5-5.1 Chloride Level 104 {mEq/l} Range: 95-109 Carbon Dioxide 31 {mEq/l} Range: 24-32 AGAP 10.3 {mEq/l} Range: 10.0-20.0 Glucose Lvl 85 mg/dl Range: 70-99 Comments: Adult reference range values reflect the clinical guidelinesof the [place] [employer]. Creatinine Lvl 1.00 mg/dl Range: 0.50-1.40 Blood Urea Nitrogen 8 mg/dl Range: 7-22 BUN/Creatinine Ratio 8 Range: 6-25 Total Protein 7.5 g/dl Range: 6.4-8.4 Albumin Lvl 4.3 g/dl Range: 3.5-5.0 Globulin 3.2 g/dl Range: 2.7-4.2 A/G Ratio 1.3 Range: 0.7-1.6 Calcium Level Total 8.7 mg/dl Range: 8.5-1 0.5 ALT 64 u/l Range: 0-65 AST 33 u/l Range: 0-37 Alk Phos 86 u/l Range: 39-136 Comments: The pediatric reference ranges for this test represent a CLSI- basedtransference of the CALIPER database of pediatric reference intervals to the[facility] [place] analyzer (Clinical Biochemistry 46 (2013): 8577-7675). [facility] [employer] has not internally validated these referenceranges and therefore they should be used only in the context of a thoroughclinical assessment. Bili Total 0.7 mg/dl Range: 0.2-1.3 eGFR 91 {ML/MIN/1.7} Comments: The e GFR is calculated using the CKD-EPI formula. In [...] eGFR shouldbe multiplied by the estimated BMI. :03 [[facility]] TSH, 3RD GENERATION W/REFLEX TO FT 4 TSH 1.930 {uIU/ml} Range: 0.360-3.7 40 :03 [QH] LIPID PANEL WITH REFLEX TO DIRECT L DL Chol 249 mg/dl (Above high threshold ) Range: <=199 Trig 286 mg/dl (Above high threshold ) Range: <=149 HDL Cholesterol 41 mg/dl (Below low threshold) Range: >=61 CHD Risk 6.07 Range: 4.00-7.30 LDL 151 mg/dl (Above high threshold ) Range: <=99 VLDL 57 :03 [[facility]] CBC (INCLUDES DIFF/PLT) WBC 8.7 {K/CMM} Range: 3.7-10.4 RBC 5.23 {M/CMM} Range: 4.70-6.10 Hgb 16.2 g/dl Range: 14.0-18.0 Hct 46.8 % Range: 42.0-54.0 MCV 89.5 fL Range: 80.0-94.0 MCH 30.9 pg Range: 27.0-31.0 MCHC 34.5 g/dl Range: 32.0-36.0 RDW 13.7 % Range: 11.5-14.5 Platelet 242 {K/CMM} Range: 133-450 Mean Platelet Volume 9.2 fL Range: 7.4- 10.4 :03 [[facility]] Differential Segmented Neutrophils 63.6 % Range: 45. 0-75.0 Monocytes 8.0 % Range: 2.0-12.0 Lymphocytes 24.1 % Range: 20.0-40.0 Eosinophils 3.4 % Range: 0.0-4.0 Basophils 0.9 % Range: 0.0-1.0 Segs-Bands # 5.5 {K/CMM} Range: 1.5-8.1 Lymphocytes # 2.1 {K/CMM} Range: 1.0-5.5 Monocytes # 0.7 {K/CMM} Range: 0.0-0.8 Eosinophils # 0.3 {K/CMM} Range: 0.0-0.5 Basophils # 0.1 {K/CMM} Range: 0.0-0.2 Plan of Care Name Dates Details Planned Observations Planned Goals not documented Planned Encounters Appointment; LEN BERNSTEIN M.D. On: 11-Jul-2020 9:30 Instructions Name Dates Details Instructions not documented [...]
--- OUTSIDE RECORDS SUMMARY | 2020-06-01 01:46 | XMS REPORT | Summary of Care ---
Author Author RUFINO VANN N.P. Organization Unknown Address Unknown Phone Unavailable Care Team Providers Care Chief Mechanical Officer Name Role Phone EDWAR Paulino, REGINA Unavailable Unavailable STEFAN GLIES DC, ALEXA DENG Unavailable Unavailable SUMAYA TUCKER MD Unavailable Unavailable STEFAN Rodriguez, ALEXA Unavailable Unavailable AMANDEEP GILES DC, LEN Paul [...] other specified organisms (466.0, J20.8) Status: Active Medications Name Dates Details Aspirin [...] TABLET DAILY * Quantity: 30 Refills: 5 VANN N.P., REGINA * Start : 14-Oct-2018 Active Cefdinir 300 MG Oral Capsule TAKE 1 CAPSULE TWICE DAILY UNTIL GONE. * Quantity: 14 Refills: 0 VANN N.P., REGINA * Start : 07-Oct-2019 Active predniSONE 10 MG Oral Tablet TAKE 2 TABLET Daily take 2 tablets once daily for 5 days, then take 1 tablet onc e daily for 5 days * Quantity: 15 Refills: 0 VANN N.P., REGINA * Start : 07-Oct-2019 Active Promethazine-DM 6.25-15 MG/5ML Oral Syrup TAKE 5 ML EVERY 4 TO 6 HOURS NEEDED FOR COUGH. * Quantity: 240 Refills: 0 VANN N.P., REGINA * Start : 07-Oct-2019 Active Allergies and Adverse Reactions Name Dates Details Penicillins (Allergy) Status: Active Chocolate (Allergy) Status: Active Past Medical History Name Dates Details History of broken nose (V15.51, Z87.81) Status: Resolved History of conjunctivitis (V12.49, Z86.6 9) Status: Resolved History of Essential hypertension, benig n (401.1, I10) Status: Resolved Procedures Procedure Dates Details [QLH] CBC (INCLUDES DIFF/PLT) Date: 07-Oct-2019 [QLH] CMP W/EGFR Date: 07-Oct-2019 [QH] LIPID PANEL WITH REFLEX TO DIRECT LDL Date: 07-Oct-2019 [QLH] TSH, 3RD GENERATION W/REFLEX TO FT4 Date: 07-Oct-2019 History of Claviculectomy Completed History of Shoulder [...] Details - Status: Name Dates Details Never smoker Vital Signs Date Test Result Details [id number] BP Systolic 136 mm[Hg] Status: Comments: Lo cation: LUE; Position: Sitting BP Diastolic 76 mm[Hg] Status: Comments: Lo cation: LUE; Position: Sitting Height 78 in Status: Temperature 99 f Status: Comments: Me thod: Temporal Respiration Rate 18 /min Status: Heart Rate 71 /min Status: Results Date Description Value Details [id number] [O] Streptococcus Test Rapid (In Office) Group A Strep Screen positive (Abnorma l) [id number]:15 [O] Flu Test (in Office ) Flu A neg (Normal) Flu B neg (Normal) Plan of Care Name Dates Details Planned Observations Planned Goals not documented Interventions Provided Medication Changes* amLODIPine-Olmesartan 10-20 MG Oral Tablet - Renew * Cefdinir 300 MG Oral Capsule - Start * predniSONE 10 MG Oral Tablet - Start * Promethazine-DM 6.25-15 MG/5ML Oral Syrup - Start Labs/Procedures/Imaging* [QH] LIPID PANEL WITH REFLEX TO DIRECT LDL; To Be Done: 07 Oct 2019 * [QLH] CBC (INCLUDES DIFF/PLT); To Be Done: 07 Oct 2019 * [QLH] CMP W/EGFR; To Be Done: 07 Oct 2019 * [QLH] TSH, 3RD GENERATION W/REFLEX TO FT4; To Be Done: 07 Oct 2019 * [O] Flu Test (in Office ); Done: 07 Oct 2019 * [O] Streptococcus Test Rapid (In Office); Done: 07 Oct 2019 Medications/Immunizations Administered* MethylPREDNISolone Acetate 80 MG/ML Injection Suspension Plan* Check fasting labs in October 2019. * Orders given to patient. * Med refilled. * Rest and stay hydrated * Follow up in 6 months or sooner if needed. Instructions Name Dates Details Instructions not documented Encounters Appointment; WILMER CABRALES D.O. Encounter Diagnosis: Problem not documented On: 17-Dec-2017 13:30 Appointment; LEN BERNSTEIN M.D. Encounter Diagnosis: Problem not documented On: 30-Jan-2018 13:00 Appointment; LEN BERNSTEIN M.D. Encounter Diagnosis: Problem not documented On: 14-Oct-2018 9:15 Appointment; REGINA VANN NP Encounter Diagnosis: Problem not documented On: 29-Apr-2019 19:00 Appointment; REGINA VANN NP Encounter Diagnosis: Problem not documented On: 07-Oct-2019 12:15
--- OUTSIDE RECORDS SUMMARY | 2020-06-01 01:46 | XMS REPORT | Summary of Care ---
Author Author RUFINO POLO Organization Unknown Address Unknown Phone Unavailable Care Team Providers Care Tick Eradicator Name Role Phone CLARENCE POLO Unavailable Unavailable STEFAN GILES NM, ALEXA DENG Unavailable Unavailable SUMAYA TUCKER MD Unavailable Unavailable ALEXA AVILES M.D. Unavailable Unavailable AMANDEEP GILES NM, LEN Paul Unavailable Unavailable Unavailable Unavailable Functional [...] 81 MG TABS TAKE 1 TABLET DAILY. M.A. Active Multi Vitamin/Minerals Oral Tablet TAKE 1 TABLET DAILY. * Refills: 0 M.A. Active Vitamin C CAPS TAKE 1 CAPSULE DAILY. * Refills: 0 M.A. Active B-12 500 MCG Oral Tablet TAKE 1 TABLET DAILY. * Refills: 0 M.A. Active amLODIPine-Olmesartan 10-20 MG Oral Tablet TAKE 1 TABLET DAILY * Quantity: 90 Refills: 1 CLARENCE POLO * Start : 14-Oct-2018 Active Ipratropium [place] 0.03 % Nasal Solution USE 2 SPRAYS [...] mm[Hg] Status: Heart Rate 81 /min Status: [id number] Systolic blood pressure 157 mm[Hg] Status: Comments [...] /min Status: Results Date Description Value Details [id number] [QLH] CMP W/EGFR Sodium Level 142 {mEq/l} Range: 135-145 Potassium Level 3.3 {mEq/l} (Below low threshol d) Range: 3.5-5.1 Chloride Level 104 {mEq/l} Range: 95-109 Carbon Dioxide 31 {mEq/l} Range: 24-32 AGAP 10.3 {mEq/l} Range: 10.0-20.0 Glucose Lvl 85 mg/dl Range: 70-99 Comments: Adult reference range values reflect the clinical guidelinesof the [place] Diabetes Association. Creatinine Lvl 1.00 mg/dl Range: [...] CALIPER database of pediatric reference intervals to [facility] (Clinical Biochemistry 46 (2013): 4420-2820). [facility] has not internally validated these referenceranges and [...] shouldbe multiplied by the estimated BMI. :03 [QLH] TSH, 3RD GENERATION W/REFLEX TO FT 4 [...] threshold ) Range: <=99 VLDL 57 :03 [[facility]] CBC (INCLUDES DIFF/PLT) WBC 8.7 {K/CMM} Range: 3.7-10.4 RBC 5.23 {M/CMM} Range: 4.70-6.10 Hgb 16.2 g/dl Range: 14.0-18.0 Hct 46.8 % Range: 42.0-54.0 MCV 89.5 fL Range: 80.0-94.0 MCH 30.9 pg Range: 27.0-31.0 MCHC 34.5 g/dl Range: 32.0-36.0 RDW 13.7 % Range: 11.5-14.5 Platelet 242 {K/CMM} Range: 133-450 Mean Platelet Volume 9.2 fL Range: 7.4- 10.4 :03 [QL] Differential Segmented Neutrophils 63.6 % Range: 45. [...] of Care Name Dates Details Planned Observations [[facility]] POTASSIUM On: 02-Feb-2020 Intent Planned Goals not documented Planned Encounters Appointment; LEN BERNSTEIN M.D. On: 11-Jul-2020 9:30 Interventions Provided Discussion/Summary* Potassium is slightly low; increase potassium-rich foods in the diet, and recheck potassium in 3-4 weeks. Cholesterol is elevated; follow low cholesterol diet, and increase aerobic exercise. Cholesterol medication is not indicated because cardiovascular risk is within normal range. Labs are otherwise normal. Instructions Name Dates Details Instructions not documented [...]
[2020-06-01] MEDS ORDERED: POTASSIUM CHLORIDE 20 MEQ TAB CR PO STA (02:18)
--- NOTE | 2020-06-01 02:43 | Diagnostic Imaging Report ---
EXAMINATION: CHEST 2 VIEWS INDICATION: Heart palpitations. ^ORDER PLACED BY ^Y COMPARISON: None FINDINGS: TUBES and LINES: None. LUNGS: Normal lung volumes. Lungs are clear. No consolidations. PLEURA: No pleural effusion or pneumothorax. HEART AND MEDIASTINUM: The cardiomediastinal silhouette is unremarkable. BONES AND SOFT TISSUES: No acute osseous lesion. Soft tissues are unremarkable. UPPER ABDOMEN: No free air under the diaphragm. IMPRESSION: No acute thoracic radiographic abnormality. Signed by: Selwyn Michelle MD on 06/01/2020 2:40 AM
== END 2020-06-01 02:22 | disposition home or self-care (01) ==
LOC: ER 00:48
DX: R00.2 Palpitations (principal); E87.6 Hypokalemia; I10 Essential (primary) hypertension
CPT/HCPCS: 36415; 71046; 80053; 82550; 82553; 83880; 84484; 85025; 85379; 93005; 99283

== ENCOUNTER 2021-09-29 19:58 | Emergency (ER) | payer OTHER ==
[~2021-09-29] VITALS: Ht 198.1 cm; Wt 123.4 kg
[2021-09-29 20:21] LABS: BASOPHILS # (AUTO) 0.1 (0.0-0.1); BASOPHILS % 0.7 % (0.0-1.0); EOSINOPHILS # (AUTO) 0.1 (0.0-0.4); EOSINOPHILS % 0.9 % (0.0-6.0); HEMATOCRIT 44.8 % (38.2-49.6); HEMOGLOBIN 15.4 g/dL (14.0-18.0); LYMPHOCYTES # (AUTO) 3.7 (1.0-3.2); LYMPHOCYTES % 44.7 % (18.0-39.1); MEAN CORPUSCULAR HEMOGLOBIN 29.4 pg (28-32); MEAN CORPUSCULAR HGB CONC 34.4 g/dL (31-35); MEAN CORPUSCULAR VOLUME 85.7 fL (81-99); MONOCYTES # (AUTO) 0.5 (0.2-0.8); NEUTROPHILS # (AUTO) 3.9 (2.1-6.9); NEUTROPHILS % 47.5 % (38.7-80.0); PLATELET COUNT 270 x10e3/uL (140-360); RED BLOOD COUNT 5.23 x10e6/uL (4.3-5.7); RED CELL DISTRIBUTION WIDTH 12.6 % (11.7-14.4)
[2021-09-29 20:39] LABS: ALBUMIN 4.4 g/dL (3.5-5.0); ALBUMIN/GLOBULIN RATIO 1.5 (0.8-2.0); ANION GAP 12.8 mmol/L (8-16); CALCIUM 8.4 mg/dL (8.4-10.2); CREATININE, SERUM 1.09 mg/dL (0.72-1.25)
[2021-09-29 20:45] LABS: POTASSIUM 2.8 mmol/L (3.5-5.1)
[2021-09-29] MEDS ORDERED: POTASSIUM CHLORIDE 20 MEQ TAB CR PO STA (20:46)
[2021-09-29 22:15] VITALS: BP 165/85
== END 2021-09-29 22:17 | disposition home or self-care (01) ==
LOC: ER 20:03
DX: R07.89 Other chest pain (principal); E87.6 Hypokalemia; R11.0 Nausea; R94.31 Abnormal electrocardiogram [ECG] [EKG]; I10 Essential (primary) hypertension
CPT/HCPCS: 36415; 71045; 80053; 82550; 82553; 84484; 85025; 93005; 99284

== ENCOUNTER 2021-10-16 19:23 | Emergency (ER) | payer OTHER ==
[~2021-10-16] VITALS: Ht 198.1 cm; Wt 123.4 kg
[2021-10-16 20:24] LABS: BASOPHILS # (AUTO) 0.1 (0.0-0.1); BASOPHILS % 0.5 % (0.0-1.0); EOSINOPHILS # (AUTO) 0.1 (0.0-0.4); HEMATOCRIT 44.3 % (38.2-49.6); HEMOGLOBIN 15.1 g/dL (14.0-18.0); LYMPHOCYTES # (AUTO) 4.1 (1.0-3.2); LYMPHOCYTES % 42.5 % (18.0-39.1); MEAN CORPUSCULAR HEMOGLOBIN 29.6 pg (28-32); MEAN CORPUSCULAR HGB CONC 34.1 g/dL (31-35); MEAN CORPUSCULAR VOLUME 86.9 fL (81-99); MONOCYTES # (AUTO) 0.5 (0.2-0.8); MONOCYTES % 5.5 % (4.4-11.3); NEUTROPHILS # (AUTO) 4.8 (2.1-6.9); NEUTROPHILS % 50.2 % (38.7-80.0); PLATELET COUNT 235 x10e3/uL (140-360); RED CELL DISTRIBUTION WIDTH 12.7 % (11.7-14.4)
[2021-10-16 20:39] LABS: ALANINE AMINOTRANSFERASE 38 IU/L (0-55); ALBUMIN 4.4 g/dL (3.5-5.0); ALBUMIN/GLOBULIN RATIO 1.6 (0.8-2.0); ALKALINE PHOSPHATASE 66 IU/L (40-150); ANION GAP 15.5 mmol/L (8-16); BLOOD UREA NITROGEN 11 mg/dL (7-26); BUN/CREATININE RATIO 10 (6-25); CALCIUM 8.9 mg/dL (8.4-10.2); CARBON DIOXIDE 26 mmol/L (22-29); CHLORIDE 106 mmol/L (98-107); CREATINE KINASE 133 IU/L (30-200); CREATININE, SERUM 1.09 mg/dL (0.72-1.25); EST GLOMERULAR FILTRATION RATE 73 ML/MIN (60-); GLUCOSE 112 mg/dL (74-118); POTASSIUM 3.5 mmol/L (3.5-5.1); SODIUM 144 mmol/L (136-145)
== END 2021-10-16 22:15 | disposition home or self-care (01) ==
LOC: ER 20:01
DX: R00.2 Palpitations (principal); I10 Essential (primary) hypertension
CPT/HCPCS: 36415; 71045; 80053; 82550; 82553; 84484; 85025; 93005; 99283